=== PATIENT | male | born 1960 | race Caucasian/White ===

== ENCOUNTER → 2016-12-30 | Outpatient (CLI) | payer BC, OTHER ==
[~2016-12-30] VITALS: Ht 177.8 cm; Wt 129.3 kg
[~2016-12-30] MED LIST: ACTO45TA6 PO; ATOR40TA PO; BASA100I SC; CIAL20TA PO; ELIQ5TAB PO; HYDR25TAB PO; LIDOCAINE 2% INJ 100 MG/5 ML SDV (FOR ANES.) As Ordered ONE; METF1000 PO; METO100T PO; NS 1,000 ML IV SCH; PROPOFOL 200 MG/20 ML VIAL As Ordered ONE; QUIN40TA5 PO; ePHEDrine SULFATE 25 MG/5 ML(5MG/ML) SYRINGE As Ordered ONE
--- NOTE | 2016-12-30 08:09 | ROOR ---
Patient Name: Umesh Vee Procedure Date: 12/30/2016 7:54 AM Date of : 1960 Age: 56 Room: [facility] Gender: Male Note Status: Finalized Procedure: Colonoscopy Indications: Screening for colorectal malignant neoplasm Providers: Yonas FIGUEROA MD Referring MD: Christian Vivar MD Requesting Provider: Medicines: Monitored Anesthesia Care Complications: No immediate complications. Procedure: Pre-Anesthesia Assessment: - The heart rate, respiratory rate, oxygen saturations, blood pressure, adequacy of pulmonary ventilation, and response to care were monitored throughout the procedure. The Colonoscope was introduced through the anus and advanced to the cecum, identified by appendiceal orifice and ileocecal valve. The colonoscopy was performed without difficulty. The patient tolerated the procedure well. The quality of the bowel preparation was good. Findings: The perianal and digital rectal examinations were normal. (Exam: Complete, Prep: Good or Excellent.) The entire examined colon appeared normal on direct and retroflexion views. Impression: - The entire colon is normal on direct and retroflexion views. - No specimens collected. Recommendation: - Repeat colonoscopy in 10 years for screening purposes. Yonas Figuerao MD Yonas FIGUEROA MD 12/30/2016 8:09:02 AM This report has been signed electronically. Number of Addenda: 0 Note Initiated On: 12/30/2016 7:54 AM Estimated Blood Loss: Estimated blood loss: none.
[2016-12-30 08:45] VITALS: BP 133/80
== END | disposition home or self-care (01) ==
LOC: M OPP 07:04
PROVIDERS: ATTEND Internal Medicine Gastroenterology
DX: Z12.11 Encounter for screening for malignant neoplasm of colon (principal); I48.91 Unspecified atrial fibrillation; I10 Essential (primary) hypertension; E11.9 Type 2 diabetes mellitus without complications; G47.30 Sleep apnea, unspecified; E78.5 Hyperlipidemia, unspecified; Z79.899 Other long term (current) drug therapy; Z79.84 Long term (current) use of oral hypoglycemic drugs; Z95.0 Presence of cardiac pacemaker

== ENCOUNTER → 2021-02-08 | Outpatient (CLI) | payer OTHER ==
[~2021-02-08] MED LIST changes: +ACTO45TA12 PO; -ACTO45TA6 PO; -ATOR40TA PO; +ATOR40TA75 PO; +HYDR-3490 PO; -HYDR25TAB PO; -LIDOCAINE 2% INJ 100 MG/5 ML SDV (FOR ANES.) As Ordered ONE; -METF1000 PO; +METF10004 PO; -METO100T PO; +METO100T5 PO; -NS 1,000 ML IV SCH; -PROPOFOL 200 MG/20 ML VIAL As Ordered ONE; +QUIN1TAB4 PO; -QUIN40TA5 PO; -ePHEDrine SULFATE 25 MG/5 ML(5MG/ML) SYRINGE As Ordered ONE
--- NOTE | 2021-02-08 17:05 | ECHO ---
ECHOCARDIOGRAM DATE OF PROCEDURE: 02/08/2021 Age: 60 Gender: Male Height: 69 inches Weight: 280 pounds Body surface area: 2.38 m2 PATIENT LOCATION: Outpatient. REFERRING PHYSICIAN: Harley Baca M.D. INDICATION: Cardiac murmur. MEASUREMENTS: 2D Measurements: RV 4.2 cm LV 4.8 cm Septum 1.2 cm Posterior wall 1.2 cm Aortic Root 3.4 cm Ascending aorta 3.6 cm LA 4.4 cm LVEF 65% Doppler Measurements: AV 1.78 m/s LVOT 0.85 m/s LVOT diameter 2.2 cm MV-E 74, A 51, E/A ratio 1.4 Early mitral deceleration time 180 msec E prime medial 4.9, A prime medial 6.7, E prime lateral 7.4 Average E/E prime ratio 12/PCWP 16.8 mmHg PV 1.1 m/s Pulmonary artery acceleration time 130 msec PASP 24 mmHg IVC Could not be visualized COMMENTS: Consistent atrially paced rhythm with spontaneous AV conduction. Technically difficult study in light of the patient's body habitus, but some diagnostically useful information was still obtained. M-mode and two-dimensional echocardiography was performed with pulse, continuous wave, color flow, and tissue Doppler studies. Borderline left ventricular hypertrophy with normal wall motion. Mildly dilated left atrium with grade 2 LV diastolic dysfunction, but currently estimated mean left atrial pressure upper limits of normal. Right heart chamber sizes were upper limits of normal with normal wall motion and current estimated pulmonary arterial pressure. His IVC could not be visualized, but unlikely to be associated with an elevated central venous pressure given his estimated pulmonary arterial pressure. Normal aortic dimensions. Mild aortic valvular sclerosis without functional abnormality. Mild mitral annular calcification with trace mitral insufficiency. Normal appearing tricuspid valve with very mild insufficiency. Pacing leads could be visualized traversing right heart structures, but unable to detect any other intracardiac mass. No pericardial effusion. MTDD
== END ==
LOC: M CARPUL 10:05
PROVIDERS: ATTEND Internal Medicine Cardiovascular Disease
DX: I50.30 Unspecified diastolic (congestive) heart failure (principal); I08.0 Rheumatic disorders of both mitral and aortic valves

== ENCOUNTER 2022-11-22 06:05 | Day surgery (SDC) | payer BC ==
[~2022-11-22] VITALS: Ht 177.8 cm; Wt 122.5 kg
[~2022-11-22 06:05] MED LIST changes: +ceFAZolin SOD 1 GM in D5W MINI-BAG PLUS 50 ML IV ONE; +ceFAZolin SOD 2 GM in IV 1 EA IV ONE
[2022-11-22] MEDS ORDERED: LR 1,000 ML IV SCH (06:45)
[2022-11-22] MEDS ORDERED: INSULIN LISPRO (NovoLOG) PER UNIT SC PRN (06:45)
[2022-11-22] MEDS ORDERED: ONDANSETRON 4MG 2ML VIAL As Ordered ONE (07:20)
[2022-11-22] MEDS ORDERED: KETOROLAC 60MG 2ML VIAL As Ordered ONE (07:20)
[2022-11-22] MEDS ORDERED: MIDAZOLAM INJ 2MG/2ML VIAL As Ordered ONE (07:20)
[2022-11-22] MEDS ORDERED: propofoL 200 MG/20 ML VIAL As Ordered ONE ×4 (07:20→09:38)
[2022-11-22] MEDS ORDERED: LIDOCAINE 2% 100MG/5ML SDV (FOR ANES.) As Ordered ONE (07:20)
[2022-11-22] MEDS ORDERED: fentaNYL 100 MCG/2 ML INJECTION As Ordered ONE ×2 (07:20→08:21)
[2022-11-22] MEDS ORDERED: LIDOCAINE 2% MDV 20ML VIAL As Ordered ONE (07:21)
[2022-11-22] MEDS ORDERED: BUPIVACAINE HCL 0.5% 30ML VIAL As Ordered ONE (07:21)
[2022-11-22] MEDS ORDERED: GENTAMICIN SULF 80MG/2ML VIAL As Ordered ONE (07:21)
[2022-11-22] MEDS ORDERED: KETAMINE HCL 200MG/20ML VIAL As Ordered ONE (07:25)
[2022-11-22] MEDS ORDERED: ACETAMINOPHEN 1000MG 100ML IV BAG As Ordered ONE ×2 (08:04→11:19)
[2022-11-22 12:00] VITALS: BP 146/77
== END 2022-11-22 12:15 | disposition home or self-care (01) ==
LOC: M SDC 06:05
PROVIDERS: ATTEND Podiatrist
DX: M20.12 Hallux valgus (acquired), left foot (principal); I48.92 Unspecified atrial flutter; I50.32 Chronic diastolic (congestive) heart failure; E66.01 Morbid (severe) obesity due to excess calories; G47.33 Obstructive sleep apnea (adult) (pediatric); I48.0 Paroxysmal atrial fibrillation; Z95.0 Presence of cardiac pacemaker; I49.5 Sick sinus syndrome; I49.3 Ventricular premature depolarization
CPT/HCPCS: 28297; 73630; 76000; 88300; C1713; J0131; J0690; J1100; J1580; J1815; J2250; J2405; J3010; S0020

== ENCOUNTER 2023-12-04 07:46 | Day surgery (SDC) | payer BC ==
[~2023-12-04] VITALS: Ht 177.8 cm; Wt 120.2 kg
[~2023-12-04 07:46] MED LIST changes: +BSS IRRIG/VANCO(10MG)/TOBRA(5MG)/EPINEPH(1:1000-0.5CC)500ML BAG-ORONLY As Ordered ONE; +DULA4.5P SC; +FARX1TAB5 PO; +MIDAZOLAM INJ 2MG/2ML VIAL As Ordered ONE; +PHENYLEPHRINE 10% OPHTH SOL 5ML OS PRN; +TRES1INJ2 SC; -ceFAZolin SOD 1 GM in D5W MINI-BAG PLUS 50 ML IV ONE; -ceFAZolin SOD 2 GM in IV 1 EA IV ONE; +fentaNYL 100 MCG/2 ML INJECTION As Ordered ONE
[2023-12-04] MEDS: PHENYLEPHRINE 2.5% OPHTH SOL 2ML OS SCH (08:22)
[2023-12-04] MEDS: LIDOCAINE 3.5 % 1ML OPHTH TOPICAL GEL OU ONE (08:22)
[2023-12-04] MEDS: ATROPINE SULFATE 1% OPHTH SOLN 2ML BTL OS SCH (08:22)
[2023-12-04] MEDS: TROPICAMIDE 1% OPHTH SOLN 15ML OS SCH (08:22)
[2023-12-04] MEDS: OFLOXACIN 0.3 % (OCUFLOX) OPTH SOL 5ML OS ONE (08:22)
[2023-12-04] MEDS: LIDOCAINE 1% SDV 5ML VIAL As Ordered ONE (09:15)
[2023-12-04] MEDS: CEFUROXIME 1MG/0.1ML INTRACAMERAL INJ As Ordered ONE (09:15)
[2023-12-04 09:28] VITALS: BP 163/81; TEMP 98.1; O2SAT 96
== END 2023-12-04 09:47 | disposition home or self-care (01) ==
LOC: M SDC 07:46
PROVIDERS: ATTEND Ophthalmology
DX: H25.12 Age-related nuclear cataract, left eye (principal); I48.91 Unspecified atrial fibrillation; E11.9 Type 2 diabetes mellitus without complications; Z95.0 Presence of cardiac pacemaker; G47.30 Sleep apnea, unspecified; Z79.899 Other long term (current) drug therapy; Z79.01 Long term (current) use of anticoagulants
CPT/HCPCS: 66984; J0697; J2250; J3010; V2632

== ENCOUNTER 2023-12-18 06:19 | Day surgery (SDC) | payer BC ==
[~2023-12-18] VITALS: Ht 177.8 cm; Wt 120.7 kg
[2023-12-18] MEDS: LIDOCAINE 3.5 % 1ML OPHTH TOPICAL GEL OU ONE (06:00)
[2023-12-18] MEDS: OFLOXACIN 0.3 % (OCUFLOX) OPTH SOL 5ML OD ONE (06:00)
[~2023-12-18 06:19] MED LIST changes: -BSS IRRIG/VANCO(10MG)/TOBRA(5MG)/EPINEPH(1:1000-0.5CC)500ML BAG-ORONLY As Ordered ONE; -MIDAZOLAM INJ 2MG/2ML VIAL As Ordered ONE; +PHENYLEPHRINE 10% OPHTH SOL 5ML OD PRN; -PHENYLEPHRINE 10% OPHTH SOL 5ML OS PRN; -fentaNYL 100 MCG/2 ML INJECTION As Ordered ONE
[2023-12-18] MEDS ORDERED: fentaNYL 100 MCG/2 ML INJECTION As Ordered ONE (06:58)
[2023-12-18] MEDS ORDERED: MIDAZOLAM INJ 2MG/2ML VIAL As Ordered ONE (06:59)
[2023-12-18] MEDS: TROPICAMIDE 1% OPHTH SOLN 15ML OD SCH (07:14)
[2023-12-18] MEDS: PHENYLEPHRINE 2.5% OPHTH SOL 2ML OD SCH (07:14)
[2023-12-18] MEDS: ATROPINE SULFATE 1% OPHTH SOLN 2ML BTL OD SCH (07:14)
[2023-12-18] MEDS: LIDOCAINE 1% SDV 5ML VIAL As Ordered ONE (07:53)
[2023-12-18] MEDS: BSS IRRIG/VANCO(10MG)/TOBRA(5MG)/EPINEPH(1:1000-0.5CC)500ML BAG-ORONLY As Ordered ONE (07:58)
[2023-12-18] MEDS: CEFUROXIME 1MG/0.1ML INTRACAMERAL INJ As Ordered ONE (08:02)
[2023-12-18 08:07] VITALS: BP 162/96; TEMP 97.1; O2SAT 96
== END 2023-12-18 08:21 | disposition home or self-care (01) ==
LOC: M SDC 06:19
PROVIDERS: ATTEND Ophthalmology
DX: E11.36 Type 2 diabetes mellitus with diabetic cataract (principal); H25.11 Age-related nuclear cataract, right eye; H40.9 Unspecified glaucoma; I10 Essential (primary) hypertension; E78.00 Pure hypercholesterolemia, unspecified; G47.30 Sleep apnea, unspecified; Z79.899 Other long term (current) drug therapy; Z79.84 Long term (current) use of oral hypoglycemic drugs; Z79.01 Long term (current) use of anticoagulants; Z95.0 Presence of cardiac pacemaker
CPT/HCPCS: 66984; J0697; J2250; J3010; V2632